=== PATIENT | female | born 1990 | race Two or more races ===

== ENCOUNTER 2020-04-12 13:45 | Inpatient (IN) | payer OTHER ==
[~2020-04-12] VITALS: Ht 175.3 cm; Wt 86.2 kg
[2020-05-03] MEDS ORDERED: PRENATAL TABLE1 EAC1 PO (06:50)
== END 2020-05-05 12:48 | disposition home or self-care (01) | DRG 768 ==
LOC: OB/GYN 04-22 13:45 → LDR 05-03 06:17 → SURG-SUITE 05-03 18:35 → OB/GYN 05-10 13:45
PROVIDERS: ADMIT Obstetrics & Gynecology; ATTEND Obstetrics & Gynecology
PROC: 10E0XZZ Delivery of Products of Conception, External Approach (ICD-10-PCS; principal; 2020-05-03)
PROC: 0DQR0ZZ Repair Anal Sphincter, Open Approach (ICD-10-PCS; 2020-05-03)
PROC: 10907ZC Drainage of Amniotic Fluid, Therapeutic from Products of Conception, Via Natural or Artificial Opening (ICD-10-PCS; 2020-05-03)
PROC: 4A1HXFZ Monitoring of Products of Conception, Cardiac Rhythm, External Approach (ICD-10-PCS; 2020-05-03)
DX: O70.20 Third degree perineal laceration during delivery, unspecified (principal); O99.824 Streptococcus B carrier state complicating childbirth; Z37.0 Single live birth; Z3A.39 39 weeks gestation of pregnancy; Z20.822 Contact with and (suspected) exposure to COVID-19

== ENCOUNTER 2020-05-02 13:14 | Outpatient (CLI) | payer OTHER ==
[2020-05-03] MEDS ORDERED: PRENATAL TABLE1 EAC1 PO (06:50)
== END 2020-05-02 14:24 | disposition home or self-care (01) ==
LOC: NST 13:14
PROVIDERS: ATTEND Obstetrics & Gynecology
DX: Z34.83 Encounter for supervision of other normal pregnancy, third trimester (principal)

== ENCOUNTER 2023-05-19 09:14 | Outpatient (CLI) | payer OTHER ==
[~2023-05-19 09:14] MED LIST: PRENATAL TABLE1 EAC1 PO
== END 2023-05-19 09:25 | disposition home or self-care (01) ==
LOC: RAD 09:14
PROVIDERS: ATTEND Obstetrics & Gynecology Gynecology
DX: N60.12 Diffuse cystic mastopathy of left breast (principal); N60.11 Diffuse cystic mastopathy of right breast; N92.0 Excessive and frequent menstruation with regular cycle; E28.2 Polycystic ovarian syndrome; N97.0 Female infertility associated with anovulation; D25.0 Submucous leiomyoma of uterus; N97.1 Female infertility of tubal origin

== ENCOUNTER 2024-01-31 10:15 | Inpatient (IN) | payer OTHER ==
[~2024-01-31] VITALS: Ht 175.3 cm; Wt 88.5 kg
[2024-02-23 04:41] VITALS: BP 112/75
[2024-02-23] MEDS ORDERED: RINGERS SOLUTION,LACTATED 1,000 ML IV SCH (04:45)
[2024-02-23] MEDS ORDERED: AMPICILLIN SODIUM 2,000 MG VIAL IV ONE (04:45)
[2024-02-23 06:26] LABS: HEMATOCRIT 37.2 % (36.0-45.00); HEMOGLOBIN 13.1 g/dL (12.0-15.00); MEAN CELL VOLUME 84.6 fL (80.00-100.00); MEAN CORPUSCULAR HEMOGLOBIN 29.7 pg (27.00-32.0); MEAN CORPUSCULAR HGB CONC 35.1 g/dl (32.0-36.0); PLATELET COUNT 211 K/uL (150-450); RED CELL DISTRIBUTION WIDTH 14.2 % (11.5-14.5)
[2024-02-23 06:47] LABS: INR 0.98; PARTIAL THROMBOPLASTIN TIME 27.3 SECONDS (22.0-34.0); PROTHROMBIN TIME 10.7 SECONDS (9.0-11.5)
[2024-02-23 06:53] LABS: PH,URINE 6.5 (5.0-8.0); URINE APPEARANCE Clear; URINE BILIRRUBIN Negative (NEGATIVE); URINE BLOOD Negative; URINE COLOR Dark Yellow; URINE GLUCOSE Negative (NEGATIVE); URINE KETONE Negative (NEGATIVE); URINE LEUKOCYTE Negative; URINE NITRATE Negative; URINE PROTEIN Trace (NEGATIVE)
[2024-02-23 06:54] LABS: URINE BACTERIA 231.2 uL (0.0-1933); URINE RBC 10.3 uL (0.0-20.8); URINE WBC 10.2 uL (0.0-23.2)
[2024-02-23 06:55] LABS: URINE CAST 0.14 uL (0.0-1.40)
[2024-02-23] MEDS ORDERED: MORPHINE SULFATE 4 MG/ML CARTRIDGE IV PRN (07:15)
[2024-02-23 07:22] VITALS: BP 1122/72; BP 132/64
[2024-02-23 07:29] LABS: ALBUMIN 2.6 gm/dL (3.4-5.0); BILIRUBIN TOTAL 0.53 mg/dL (0.3-1.2); CALCIUM 8.6 mg/dL (8.5-10.1); CREATININE SERUM 0.48 mg/dL (0.55-1.02); GFR 148.04; GLOBULINA 3.5 G/DL (2.4-3.5); POTASSIUM 3.76 mEq/L (3.5-5.1); TOTAL PROTEIN 6.1 gm/dL (6.4-8.2)
[2024-02-23] MEDS ORDERED: OXYTOCIN 500 ML IV SCH (08:00)
[2024-02-23] MEDS ORDERED: AMPICILLIN SODIUM 1,000 MG VIAL IV SCH (09:00)
[2024-02-23 10:51] VITALS: BP 116/65
[2024-02-23] MEDS ORDERED: OXYTOCIN 20 UNITS/1000ML RL PIGGYBAG IV ONE (10:53)
[2024-02-23] MEDS ORDERED: LIDOCAINE HCL 1% 10ML VIAL ONE (10:53)
[2024-02-23] MEDS ORDERED: ERYTHROMYCIN BASE OPHT 1GM EACH TUBE OP ONE (10:53)
[2024-02-23] MEDS ORDERED: CHLORHEXIDINE GLUCONATE 120 ML BOTTLE TOP ONE ×2 (10:53→12:30)
[2024-02-23] MEDS ORDERED: OXYTOCIN 1,000 ML IV SCH (11:45)
[2024-02-23] MEDS ORDERED: CHLORHEXIDINE GLUCONATE 120 ML BOTTLE TOP SCH (11:45)
[2024-02-23] MEDS ORDERED: IBUprofen 400 MG TABLET PO PRN (11:45)
[2024-02-23] MEDS ORDERED: LIDOCAINE HCL 1% 10ML VIAL IJ ONE (12:30)
[2024-02-23 13:41] VITALS: BP 111/69
[2024-02-23 15:57] VITALS: BP 102/68
[2024-02-24] VITALS: BP 94/60
[2024-02-24 07:05] LABS: HEMATOCRIT 35.3 % (36.0-45.00); HEMOGLOBIN 12.4 g/dL (12.0-15.00); MEAN CELL VOLUME 86.2 fL (80.00-100.00); MEAN CORPUSCULAR HEMOGLOBIN 30.3 pg (27.00-32.0); MEAN CORPUSCULAR HGB CONC 35.2 g/dl (32.0-36.0); PLATELET COUNT 194 K/uL (150-450); RED BLOOD COUNT 4.09 M/uL (4.00-6.00); RED CELL DISTRIBUTION WIDTH 13.9 % (11.5-14.5)
[2024-02-24 09:08] VITALS: BP 104/70
[2024-02-24 15:56] VITALS: BP 103/64
[2024-02-25 01:08] VITALS: BP 95/65
[2024-02-25 08:08] VITALS: BP 102/66
== END 2024-02-25 11:15 | disposition home or self-care (01) | DRG 807 ==
LOC: OB/GYN 02-19 10:15 → LDR 02-23 04:28 → OB/GYN 02-23 12:35
PROVIDERS: ADMIT Obstetrics & Gynecology; ATTEND Obstetrics & Gynecology
PROC: 10E0XZZ Delivery of Products of Conception, External Approach (ICD-10-PCS; principal; 2024-02-23)
PROC: 0KQM0ZZ Repair Perineum Muscle, Open Approach (ICD-10-PCS; 2024-02-23)
PROC: 4A1HXCZ Monitoring of Products of Conception, Cardiac Rate, External Approach (ICD-10-PCS; 2024-02-23)
DX: O70.1 Second degree perineal laceration during delivery (principal); Z37.0 Single live birth; Z3A.40 40 weeks gestation of pregnancy

== ENCOUNTER 2024-02-15 07:32 | Outpatient (CLI) | payer OTHER | END 2024-02-15 08:31 | disposition home or self-care (01) | LOC: NST 07:32 | PROVIDERS: ATTEND Obstetrics & Gynecology Maternal & Fetal Medicine | DX: Z34.83 Encounter for supervision of other normal pregnancy, third trimester (principal) ==

== ENCOUNTER 2024-02-21 12:30 | Outpatient (CLI) | payer OTHER | END 2024-02-21 14:39 | disposition home or self-care (01) | LOC: NST 12:30 | PROVIDERS: ATTEND Obstetrics & Gynecology Gynecology | DX: Z34.83 Encounter for supervision of other normal pregnancy, third trimester (principal) ==